=== PATIENT | male | born 1960 | race Caucasian/White ===

== ENCOUNTER 2024-10-10 11:05 | Outpatient (CLI) | payer MEDICARE, SELFPAY ==
--- NOTE | ~2024-10-10 | XR_ITS ---
Lumbosacral Spine: AP and lateral views Clinical History: Pain Findings: The normal lordotic curve is maintained. No fracture seen. 5 mm anterolisthesis of L4 over L5 present. There is severe facet arthropathy throughout the lumbar spine, especially from L3 through S1. The sacroiliac joints are normally outlined. Impression: Extensive severe facet arthropathy, as above. 5 mm anterolisthesis of L4 over L5. Reviewed, dictated and finalized at location M. Impression: Extensive severe facet arthropathy, as above. 5 mm anterolisthesis of L4 over L5.
--- NOTE | ~2024-10-10 | XR_ITS ---
XR hip BI 2V w AP pelvis 10/10/2024 11:40 Indication: Hip pain Procedure: AP pelvis and 2 views each hip Comparison: No prior studies for comparison. Findings: There is a left total hip arthroplasty. Pelvic rings intact. There is severe osteoarthritis of the right hip with remodeling of the acetabulum. There is lower lumbar spondylosis. Impression: 1: Severe osteoarthritis of the right hip. Reviewed, dictated and finalized at location B. Impression: 1: Severe osteoarthritis of the right hip.
--- OUTSIDE RECORDS SUMMARY | 2024-10-10 11:15 | XMS_ITS | Clinical Summary ---
Author Organization [facility] Address [address] [place] [address] Phone Care Team Providers Care Him Tech Name Role Phone Randy Singh Primary Care Provider [phone] Medications escitalopram (LEXAPRO) 20 MG Tablet Take 20 mg by mouth daily. 12/16/2020 Active Naproxen Sodium 220 MG Capsule Take by mouth 2 times daily as needed. Active Vit-Fe Fumarate-FA ( VITAMIN PO) Take by mouth. Active Ascorbic Acid (VITAMIN C PO) Take by mouth daily. Active zinc sulfate (Zinc-220) 220 (50 Zn) MG Capsule Take 220 mg by mouth daily. Active Active Problems Problem Noted Date Diagnosed Date Severe alcohol use disorder, in early remission 12/08/2016 Alcoholic dependence syndrome 12/03/2016 Cocaine dependence, episodic 12/03/2016 Family History Medical History Relation Name Comments Heart Disease Father Cancer Paternal Aunt stomach Cancer Sister Ovarian Relation Name Status Comments Father Paternal Aunt Sister Social History Tobacco Use Types Packs/Day Years Used Date Smoking Tobacco: Never Smokeless Tobacco: Never Alcohol Use Standard Drinks/Week Comments Not Currently 0 (1 standard drink = 0.6 oz pure alcohol) jack pattern excessive drinking 1 or 2 X's month 1 to 4 days a time Sexually Active Control Partners Comments Not Currently Female Sex and Gender Information Value Date Recorded Sex Assigned at Not on file Legal Sex Male 12:35 AM CDT Gender Identity Not on file Sexual Orientation Not on file Last Filed Vital Signs Vital Sign Reading Time Taken Comments Blood Pressure 125/79 04/28/2021 10:35 AM COTTAGE SUPERVISOR Pulse 61 04/28/2021 10:35 AM COTTAGE SUPERVISOR Temperature 36 C (96.8 F) 04/28/2021 10:35 AM COTTAGE SUPERVISOR Respiratory Rate 12 04/28/2021 10:35 AM COTTAGE SUPERVISOR Oxygen Saturation 100% 04/28/2021 10:35 AM COTTAGE SUPERVISOR Inhaled Oxygen Concentration - - Weight 90.3 kg (199 lb) 04/03/2021 9:00 AM COTTAGE SUPERVISOR Height 170.2 cm (5' 7 ) 04/03/2021 9:00 AM COTTAGE SUPERVISOR Body Mass Index 31.17 04/03/2021 9:00 AM COTTAGE SUPERVISOR Plan of Treatment Health Maintenance Due Date Last Done Comments Hepatitis C Virus (HCV) Screening 1960 TdaP Immunization 1958 Pneumococcal Immunization (5 0+ years) (1 of 2 - PCV) 1977 Cologuard 2008 Immunochemical Fecal Occult Blood 2008 Zoster Immunization (1 of 2) 2008 Influenza Immunization (#1) 2024 SARS-COV-2 Immunization ( season) 2024 Colonoscopy 04/28/2024 04/28/2021 Colorectal Cancer Screening 04/28/2024 Respiratory Syncytial Virus (RSV) Immunization (Adult) (1 - 1-dose 75+ series) 2033 04/28/2021 Hepatitis B Immunization Aged Out No longer eligible based on patient's age to complete this topic Meningococcal Immunization (ACWY) Aged Out No longer eligible based on patient's age to complete this topic Rotavirus Immunization Aged Out No lo nger eligible based on patient's age to complete this topic Insurance [facility] Care Teams Him Tech Relationship Specialty Start Date End Date Randy Singh PAC [address] [place] [address] PCP - General Physician Carburetor Specialist 11/05/16
[2024-10-10 19:29] LABS: Alanine Aminotransferase 27 U/L (6-50); Albumin Level 4.4 g/dL (3.5-5.1); Alkaline Phosphatase 95 U/L (38-126); Anion Gap 7 mmol/L (4-12); Aspartate Amino Transferase 62 U/L (17-59); Bilirubin,Total 0.4 mg/dL (0.2-1.3); Blood Urea Nitrogen 19 mg/dL (9-20); Calcium 9.1 mg/dL (8.4-10.2); Carbon Dioxide 28 mmol/L (22-30); Chloride 105 mmol/L (98-107); Cholesterol 260 mg/dL (0-200); Estimated Glomerular Filt Rate 52; Glucose 88 mg/dL (65-110); HDL Direct 33 mg/dL; Potassium 4.7 mmol/L (3.4-5.0); Sodium 140 mmol/L (137-145); Triglycerides 211 mg/dL (<150)
[2024-10-10 19:43] LABS: LDL Cholesterol Direct 154 mg/dL
[2024-10-10 19:58] LABS: Prostate Specific Antigen 1.8 ng/mL (< OR = 4.0)
== END 2024-10-10 11:06 | disposition home or self-care (01) ==
PROVIDERS: PCP Nurse Practitioner Adult Health; Visit Provider Nurse Practitioner Adult Health
DX: M16.11 Unilateral primary osteoarthritis, right hip (principal); E66.9 Obesity, unspecified; Z12.5 Encounter for screening for malignant neoplasm of prostate; F10.11 Alcohol abuse, in remission; M54.9 Dorsalgia, unspecified; G89.29 Other chronic pain; Z51.81 Encounter for therapeutic drug level monitoring
CPT/HCPCS: 36415; 72100; 73521; 80053; 80061; 82607; 84153; G0103

== ENCOUNTER 2024-10-31 08:41 | Outpatient (CLI) | payer MEDICARE, SELFPAY ==
--- NOTE | ~2024-10-31 | MR_ITS ---
MRI of the lumbar spine Clinical History: Spondylosis Technique: Axial T2-weighted images, and sagittal T1-weighted, T2-weighted, and and T2 fat-sat images were acquired. Findings: No fracture or subluxation seen in the lumbar spine. Vertebral bodies maintain normal heigh t and alignment. No bone marrow signal abnormality seen. At L1-L2 and L2-L3, intervertebral discs maintain normal signal and position. No disc bulge or hernia tion adrenals. There is moderate facet arthropathy at these levels. No spinal canal stenosis or neura l foraminal narrowing at these levels. At L3-L4, there is disc bulge with severe facet arthropathy, resulting in severe spinal canal stenosi s/thecal sac compression. There is moderate right neural foraminal narrowing, and mild left neural fo raminal narrowing. At L4-L5, there is diffuse disc bulge and severe facet arthropathy. There is severe spinal canal sten osis/thecal sac compression. Neural foramina are preserved. At L5-S1, there is mild degenerative tearing. There is mild diffuse disc bulge with advanced facet ar thropathy. No central canal stenosis. There is severe bilateral neural foraminal compromise. Paravertebral soft tissues are unremarkable. Impression: Severe degenerative spondylosis at L3-L4, L4-L5, and L5-S1. Please see details above. Reviewed, dictated and finalized at [facility]. Impression: Severe degenerative spondylosis at L3-L4, L4-L5, and L5-S1. Please see details above.
--- OUTSIDE RECORDS SUMMARY | 2024-10-31 08:59 | XMS_ITS | Clinical Summary ---
Author Organization [facility] Address [address] [place] [address] Care Team Providers Care Bobbin Doffer Name Role Phone Randy Singh Primary Care Provider [phone] Allergies No known active allergies Medications folic acid (FOLVITE) 1 mg tablet Take 1 tablet (1 mg total) by mouth daily 30 tablet 10/11/2019 Active traMADoL (ULTRAM) 50 mg tablet Take 1 tablet (50 mg total) by mouth every 4 (four) hours as needed for pain 20 tablet 10/12/2019 Active Active Problems Problem Noted Date Diagnosed Date Renal failure 10/09/2019 Assessment & Plan (10/09/2019 6:34 AM CDT): No prior creatinine. Unknown if it is acute, chronic or acute on chronic. Patient has trace proteins in his urine. Patient is receiving IV fluids, will continue to monitor. Hold all nephrotoxins. Cellulitis of right foot 10/09/2019 Assessment & Plan (10/09/2019 6:44 AM CDT): Suspect streptococcal infection. Appears to be improving with cefepime. Continue to monitor. Patient states he lives alone and there is no one to care for his dog. He is hoping he can be discharged today so he can go home and feed his dog. Patient encouraged to stay and advised to see if he has any family or friends that can help take care of his dog while he is being treated in the hospital. Patient advised that it is unlikely that he would be discharged today. Patient was also advised of the risk of leaving against medical advice including risk of bone infection, amputation, sepsis and . Patient would like to stay for care but is concerned about his dog. Alcohol abuse 10/09/2019 Assessment & Plan (10/09/2019 6:31 AM CDT): Patient drinks half pt of vodka daily and his last drink was the evening prior to presentation. Will start patient on folic acid, thiamine and multivitamin. If patient willing to stay, will start on low-dose Librium. Will monitor for signs of withdrawal. 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 Will check ANCA, cryoglobulins, C4, hepatitis-B and C serology, ESR and PTT. CRP slightly elevated. Will check a urine drug screen given history of cocaine use. Chronic alcohol use Encounters Date Type Department Care Team Description 10/19/2024 9:04 AM CDT - 10/19/2024 11:59 PM CDT Hospital Encounter [facility] [address] [place] [address] Encounter for disability determination Discharge Disposition: Discharge to home or self care from Last 3 Months Surgical History Surgery Date Site/Laterality Comments OTHER SURGICAL HISTORY Left hip osteoarthritis: left hip replacement. OTHER SURGICAL HISTORY Erectile dysfunction: Drug therapy OTHER SURGICAL HISTORY Pneumonia: Drug therapy JOINT REPLACEMENT Medical History Medical History Date Comments Hx Other Medical 2001 Left hip osteoa rthritis Hx Other Medical 2005 Erectile dysfun ction Pneumonia 2007 Pneumonia Arthritis Family History Medical History Relation Name Comments Other Father CAD, valve repl acement; Stomach cancer Father's Sister 2 cancer, gastric; Other Mother Healthy; Relation Name Status Comments Father Alive Father's Sister 1 Alive Father's Sister 2 Mother Alive Social History Tobacco Use Types Packs/Day Years Used Date Smoking Tobacco: Never Alcohol Use Standard Drinks/Week Comments Yes 0 (1 standard drink = 0.6 oz pur e alcohol) pint of vodka every night PHQ-2 Answer Date Recorded PHQ-2 Total Score (If total score is 3 or more points, staff should administer the PHQ-9) 1 10/08/2019 Sex and Gender Information Value Date Recorded Sex Assigned at Not on file 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 Gender Identity Not on file Sexual Orientation Not on file Obstetrics History Last Filed Vital Signs Vital Sign Reading Time Taken Comments Blood Pressure 162/82 10/12/2019 11:24 PM CDT Pulse 101 10/12/2019 8:40 PM CDT Temperature 37.4 C (99.4 F) 10/12/2019 8:40 PM CDT Respiratory Rate 20 10/12/2019 11:24 PM CDT Oxygen Saturation 99% 10/12/2019 11:24 PM CDT Inhaled Oxygen Concentration - - Weight 86.2 kg (190 lb) 10/12/2019 8:40 PM CDT Height 170.2 cm (5' 7) 10/12/2019 8:40 PM CDT Body Mass Index 29.76 10/12/2019 8:40 PM CDT Plan of Treatment Health Maintenance Due Date Last Done Comments Colon Cancer Screening-Colonoscopy 1958 Prostate Cancer Screening-PSA 1958 DTaP/Tdap/Td Vaccine (1 - Tdap) 1969 Pneumococcal vaccine 65+ (1 of 1 - PCV) 2008 Zoster Vaccine (1 of 2) 2008 Depression Screening 10/07/2020 10/08/2019 Fall Risk Assessment 10/09/2020 10/10/2019 Abdominal Aortic Aneurysm (AAA) Screen 09/30/2023 Well Visit 65+ 09/30/2023 Influenza Vaccine (Season Ended) 2025 Hepatitis B Screening Completed 10/09/2019 Hepatitis C Screening Completed 10/09/2019 Procedures Procedure Name Priority Date/Time Associated Diagnosis Comments XR HIP RIGHT W PELVIS 2 OR 3 VIEWS Schedule Routine, Read Routine (OP Routine) 10/19/2024 9:15 AM CDT Encounter for disability determination HEPATITIS C ANTIBODY Routine 10/09/2019 8:29 AM CDT HEPATITIS B CORE ANTIBODY, TOTAL Routine 10/09/2019 8:29 AM CDT from Last 3 Months or Most Recently Relevant to Health Maintenance Results * XR Hip Right 2 or 3 Views W Pelvis (10/19/2024 9:15 AM CDT) Anatomical Region Laterality Modality Lower Extremities, Hip, Pelvis Right C omputed Radiography 10/26/2024 3:41 PM CDT Narrative 10/26/2024 3:42 PM CDT EXAM DESCRIPTION: XR HIP RIGHT 2 OR 3 VIEWS W PELVIS REASON FOR STUDY: Pt states he has been having constant right hip pain for 15 years Pain increases when bearing weight Osteoarthritis Hx of left hip replacement FINDINGS: Three views submitted without comparison. No acute fracture. Severe right hip osteoarthritis. Left total hip arthroplasty is in place. 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 IMPRESSION: Severe right hip osteoarthritis. THIS IS AN ELECTRONICALLY VERIFIED FINAL REPORT 10/26/2024 3:42 PM - Electronically signed by Jose L Cueva M.D. MF: ZOE Report ID: [id number] Reading Location: [id number] Procedure Note Jose L Cueva MD - 10/26/2024 EXAM DESCRIPTION: XR HIP RIGHT 2 OR 3 VIEWS W PELVIS REASON FOR STUDY: Pt states he has been having constant right hip pain for15 years Pain increases when bearing weight Osteoarthritis Hx of lefthip replacement FINDINGS: Three views submitted without comparison. No acute fracture. Severe right hip osteoarthritis. Left total hip arthroplasty is in place. 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 IMPRESSION: Severe right hip osteoarthritis. THIS IS AN ELECTRONICALLY VERIFIED FINAL REPORT 10/26/2024 3:42 PM - Electronically signed by Jose L Cueva M.D. MF: ZOE Report ID: [id number] Reading Location: [id number] Tony Roman MD IMG XR PROCEDURES Final Result * Hepatitis C antibody (10/09/2019 8:29 AM CDT) Hep C Ab Nonreactive Nonreactive JULIA GUTHRIE ([place]) Comment: Interpretive Data Nonreactive: Antibodies to HCV not detected. Does NOT exclude the possibility of recent exposure to HCV. Equivocal: Equivocal for HCV antibodies. Supplemental molecular testing will be automatically performed to determine infection status in accordance with current CDC screening recommendations. Reactive: Positive for HCV antibodies. This may represent current or past HCV infection. Supplemental molecular testing will be automatically performed to determine current infection status in accordance with current CDC screening recommendations. Interpretive data was last revised on 2019. Testing performed by: [facility], [address] [place] [address]., [id number] Blood specimen (specimen) 10/09/2019 8:29 AM CDT 10/09/2019 1:47 PM CDT Xiomara Arizmendi MD LAB MICROBIOLOGY - GENERAL ORDER NELSON Final Result JULIA [facility] ([place]) 1 [facility] [employer] [place] [address] * Hepatitis B core antibody, total (10/09/2019 8:29 AM CDT) Hep B core IgG/IgM Nonreactive Nonreactive JULIA GUTHRIE ([place]) Comment:Testing performed by : [facility], [address] [place] [address]., [address] Blood specimen (specimen) 10/09/2019 8:29 AM CDT 10/09/2019 2:47 PM CDT Xiomara Arizmendi MD LAB MICROBIOLOGY - GENERAL ORDER NELSON Edited Result - Final JULIA GUTHRIE ([place]) 1 [facility] [employer] [place] [address] from Last 3 Months or Most Recently Relevant to Health Maintenance Insurance [facility] BUREAU OF DISABILITY Advance Directives For more information, please contact: [phone] * Full Code (Latest Code Status on File) Date Activated Date Inactivated Comments 10/08/2019 11:16 PM 10/10/2019 7:23 PM Healthcare Agents on File Name Relationship Healthcare Agent Relationsil p Communication Karis Short Sister First Alternate Health Care Agent Care Teams Bobbin Doffer Relationship Specialty Start Date End Date Randy Singh PA [address] [place] [address] PCP - General 10/08/19
--- OUTSIDE RECORDS SUMMARY | 2024-10-31 08:59 | XMS_ITS | Referral Summary ---
Author Organization [facility] Address [address] [place] [address] Care Team Providers Care Quality Control Technician Name Role Phone Randy Singh Primary Care Provider [phone] Encounters Date Type Department Care Team Description 10/19/2024 9:04 AM CDT - 10/19/2024 11:59 PM CDT Hospital Encounter [facility] [address] [place] [address] Encounter for disability determination Discharge Disposition: Discharge to home or self care from Last 3 Months Allergies No known active allergies Medications folic [...] history of cocaine use. 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 MF: ZOE Report ID: [id number] Reading Location: [id number] Procedure Note Jose L Cueva MD - [...] L Cueva M.D. MF: ZOE Report ID: [id number] Reading Location: [place] [address] [place] Tony Roman MD IMG XR PROCEDURES Final [...] last revised on 2019. Testing performed by: [facility], [address] [place] [address]., [address] Blood specimen (specimen) 10/09/2019 8:29 AM CDT 10/09/2019 1:47 PM CDT Xiomara Arizmendi MD LAB MICROBIOLOGY - GENERAL ORDER NELSON Final Result JULIA GUTHRIE ([place]) 1 [facility] Department [place] [address] * Hepatitis B core antibody, total (10/09/2019 8:29 AM CDT) Hep B core IgG/IgM Nonreactive Nonreactive JULIA GUTHRIE ([place]) Comment:Testing performed by : [facility], [address] [place] [address], [place]., [address] Blood specimen (specimen) 10/09/2019 8:29 AM CDT 10/09/2019 2:47 PM CDT us Xiomara Arizmendi MD LAB MICROBIOLOGY - GENERAL ORDER NELSON Edited Result - Final [facility] ([place]) 1 [facility] Department [place] [address] from Last 3 Months or Most Recently Relevant to Health Maintenance Insurance [facility] BURE[facility] OF DISABILITY Advance Directives For more information, please contact: [phone] * Full Code (Latest Code Status on File) Date Activated Date Inactivated Comments 10/08/2019 11:16 PM 10/10/2019 7:23 PM Healthcare Agents on File Name Relationship Healthcare Agent [facility] Communication Karis Short Sister First Alternate Health Care Agent Care Teams Quality Control Technician Relationship Specialty Start Date End Date Randy Singh PA [address] [place] [address] PCP - General 10/08/19
--- OUTSIDE RECORDS SUMMARY | 2024-10-31 08:59 | XMS_ITS | Data Portability ---
Author Organization [facility] Address [address] [place] [address] Care Team Providers Care Riding Silks Custodian Name Role Phone KIA SINGH Primary Care Provider Assessment No assessment recorded. Plan of Treatment Reminders Order Date Submit Date Provider Last Modified By Organization Details Last Modified Time Details Appointments None record ed. Lab urinal ysis, dipsti ck 2023 024 YOGESH In-Office Order, Internal Use Only DO Not Attach Compendium DO Not Attach Compendium, Do Not Delete/merge, [id number] 4 12:07:14 CBC 2023 024 [email or web address] [facility], [address] [facility] [address], [address], 4 10:05:56 CMP, serum or plasma 2023 024 [email or web address] [facility], [address] [place] [address] 2, [place], [address], 4 10:05:56 lipid panel, serum 2023 024 [email or web address] [facility], [address] [facility], [facility] 2, [place], [address], 4 10:05:56 HbA1c (hemog lobin A1c), blood 2023 024 [email or web address] [facility], [address] [facility], [facility] 2, [place], [address], 4 10:05:56 influe nza virus A + B + SARS-C oV-2 (COVID 19) Ag panel, rapid IA, upper respir atory specim en 2023 024 YOGESH In-Office Order, Internal Use Only DO Not Attach Compendium DO Not Attach Compendium, Do Not Delete/merge, [id number] 4 12:09:28 CBC 2022 023 YOGESH [facility], [address], [place], [address], 3 06:16:07 CMP, serum or plasma 2022 023 YOGESH [facility], [address], [address], [place], [address], 3 06:16:06 lipid panel, serum 2022 023 YOGESH [facility], [address], [place], [address], 3 06:16:06 HbA1c (hemog lobin A1c), blood 2022 023 YOGESH In-Office Order, Internal Use Only DO Not Attach Compendium DO Not Attach Compendium, Do Not Delete/merge, [id number] 3 12:55:06 HbA1c (hemog lobin A1c), blood 2020 021 YOGESH In-Office Order, Internal Use Only DO Not Attach Compendium DO Not Attach Compendium, Do Not Delete/merge, [id number] 1 13:16:32 CBC 2020 021 YOGESH [facility], [address], [place], [address], 1 13:10:08 CMP, serum or plasma 2020 021 YOGESH [facility], [address], [address], [place], [address], 1 13:10:07 lipid panel, serum 2020 021 [facility], [address] [place] [address] 2, [place], [address], 1 13:10:09 vitami n B12 + folate , serum or blood 2020 021 [facility], [address] [place] [address] 2, [place], [address], 1 13:10:12 PSA, serum or plasma 2020 021 [facility], [address] [place] [address] 2, [place], [address], 1 13:10:09 noninv asive colore ctal cancer DNA + occult blood screen ing, stool 2020 021 [facility] (Cologuard Orders Only), [address], [address], [place], [address], 19:15:21 Referral dermat simeon reed referr al 2020 021 [facility], [address], [address], [place], [address], 14:03:08 Procedures None record ed. Surgeries None record ed. Imaging None record ed. Medication Orders escita lopram 20 mg tablet 2022 023 [id number], [address], [place], [place], [id number], 4 15:03:18 escita lopram 20 mg tablet 2020 021 [id number], [address], [place], [place], [id number], 4 15:03:25 Bactri m DS 800 mg-160 mg tablet 2020 021 [facility][id number], [address], [place], [place], [id number], 3 11:44:01 neomyc in-sabina ymyxin -hydro gregory 3.5 mg-10, 000 unit/m L-1 % ear drops, susp 2020 021 [facility], [address], [place], [place], [id number], 11:43:24 Patient TargetsNo targets recorded. Patient Instructions Encounter Date Encounter Id Patient Instructions Last Modified By Organization Details Last Modified Time 12/16/2020 [id number] skin lesions: care instructions jnanney Not available 12/16/2020 12:35:02 12/30/2020 [id number] acute alcohol intoxication: care instructions jnanney Not available 12/30/2020 11:10:02 body mass index: care instructions jnanney Not available 12/30/2020 11:10:02 learning about healthy weight jnanney Not available 12/30/2020 11:10:02 keep doing what you're doing jnanney Not available 12/30/2020 11:07:50 07/28/2022 [id number] A healthy lifestyle: care instructions jnanney Not available 07/28/2022 12:44:03 07/23/2023 [id number] A healthy lifestyle: care instructions jnanney Not available 07/23/2023 12:06:55 blood in the urine: care instructions jnanney Not available 07/23/2023 12:06:56 learning about high blood pressure jnanney Not available 07/23/2023 12:06:56 upper respirator y infection (cold): care instructions jnanney Not available 07/23/2023 12:06:55 03/08/2024 [id number] A healthy lifestyle: care instructions jnanney Not available 03/08/2024 15:27:02 Reason for Referral Geriatric Nursing Assistant Referral for S kin lesion Referring Physician: Kia Singh, Family Medicine, Encounter Date: 12/16/2020 Results Created Date Observation Date Name Description Value Unit Range Abnormal Flag Note LastModifiedBy Organization Detail LastModifiedTime 12/17/19 21 12/17/2020 COMP. METAB OLIC PANEL (14) glucose 110 mg/dL 65-99 above high normal Not Available [facility] ([facility]) [address] [place], [address], 12/17/2020 13:10:07 12/17/19 21 12/17/2020 COMP. METAB OLIC PANEL (14) BUN 18 mg/dL 8-27 Not Available [facility] ([facility]) [address] [place], [address], 12/17/2020 13:10:07 12/17/19 21 12/17/2020 COMP. METAB OLIC PANEL (14) creatinine 1.39 mg/dL 0.76-1 .27 above high normal Not Available [facility] ([facility]) [address] [place], [address], 12/17/2020 13:10:07 12/17/19 21 12/17/2020 COMP. METAB OLIC PANEL (14) eGFR if nonafricn AM 54 mL/mi n/1.7 3 >59 below low normal Not Available [facility] ([facility]) [address] [place], [address], 12/17/2020 13:10:07 12/17/19 21 12/17/2020 COMP. METAB OLIC PANEL (14) eGFR if africn AM 62 mL/mi n/1.7 3 >59 Lab stephen curre ntly repor ts eGFR in compl iance with the curre nt recom menda tions of the Natio nal Kidne y Found ation . [facility] will updat e repor ting as new guide lines are publi shed from the NKF-A SN Task force . Not Available [facility] ([facility]) [address] [facility], [place], [address], 12/17/2020 13:10:07 12/17/19 21 12/17/2020 COMP. METAB OLIC PANEL (14) BUN/creatini ne ratio 13 10-24 Not Available [facility] ([facility]) [address] [facility], [place], [address], 12/17/2020 13:10:07 12/17/19 21 12/17/2020 COMP. METAB OLIC PANEL (14) sodium 143 mmol/ L 134-14 4 Not Available [facility] ([facility]) [address] [place], [address], 12/17/2020 13:10:07 12/17/19 21 12/17/2020 COMP. METAB OLIC PANEL (14) potassium 4.8 mmol/ L 3.5-5. 2 Not Available [facility] ([facility]) [address] [facility], [place], [address], 12/17/2020 13:10:07 12/17/19 21 12/17/2020 COMP. METAB OLIC PANEL (14) chloride 104 mmol/ L 96-106 Not Available [facility] ([facility]) [address] [facility], [place], [address], 12/17/2020 13:10:07 12/17/19 21 12/17/2020 COMP. METAB OLIC PANEL (14) carbon dioxide, total 23 mmol/ L 20-29 Not Available [facility] ([facility]) [address] [facility], [place], [address], 12/17/2020 13:10:07 12/17/19 21 12/17/2020 COMP. METAB OLIC PANEL (14) calcium 9.5 mg/dL 8.6-10 .2 Not Available [facility] ([facility]) [address] [facility], [place], [address], 12/17/2020 13:10:07 12/17/19 21 12/17/2020 COMP. METAB OLIC PANEL (14) protein, total 7.6 g/dL 6.0-8. 5 Not Available [facility] ([facility]) [address] [facility], [place], [address], 12/17/2020 13:10:07 12/17/19 21 12/17/2020 COMP. METAB OLIC PANEL (14) albumin 4.7 g/dL 3.8-4. 8 Not Available [facility] ([facility]) [address] [facility], [place], [address], 12/17/2020 13:10:07 12/17/19 21 12/17/2020 COMP. METAB OLIC PANEL (14) globulin, total 2.9 g/dL 1.5-4. 5 Not Available [facility] ([facility]) [address] [place], [address], 12/17/2020 13:10:07 12/17/19 21 12/17/2020 COMP. METAB OLIC PANEL (14) A/G ratio 1.6 1.2-2. 2 Not Available [facility] ([facility]) [address] [facility], [place], [address], 12/17/2020 13:10:07 12/17/19 21 12/17/2020 COMP. METAB OLIC PANEL (14) bilirubin, total 0.3 mg/dL 0.0-1. 2 Not Available [facility] ([facility]) [address] [facility], [place], [address], 12/17/2020 13:10:07 12/17/19 21 12/17/2020 COMP. METAB OLIC PANEL (14) alkaline phosphatase 96 IU/L 48-121 Not Available [facility]) [address] [facility], [place], [address], 12/17/2020 13:10:07 12/17/19 21 12/17/2020 COMP. METAB OLIC PANEL (14) AST (SGOT) 36 IU/L 0-40 Not Available [facility] ([facility]) [address] [place], [address], 12/17/2020 13:10:07 12/17/19 21 12/17/2020 COMP. METAB OLIC PANEL (14) ALT (SGPT) 48 IU/L 0-44 above high normal Not Available [facility] ([facility]) [address] [facility], [place], [address], 12/17/2020 13:10:07 12/17/19 21 12/17/2020 CBC, NO DIFFE RENTI AL/PL ATELE T WBC 9.6 x10e3 /uL 3.4-10 .8 Not Available [facility] ([facility]) [address] [facility] [place], [address], 12/17/2020 13:10:08 12/17/19 21 12/17/2020 CBC, NO DIFFE RENTI AL/PL ATELE T RBC 4.96 x10e6 /uL 4.14-5 .80 Not Available [facility] ([facility]) [address] [place], [address], 12/17/2020 13:10:08 12/17/19 21 12/17/2020 CBC, NO DIFFE RENTI AL/PL ATELE T hemoglobin 16.2 g/dL 13.0-1 7.7 Not Available [facility] ([facility]) [address] [place], [address], 12/17/2020 13:10:08 12/17/1912/17/2020 CBC, NO DIFFE RENTI AL/PL ATELE T hematocrit 47.5 % 37.5-5 1.0 Not Available [facility] ([facility]) [address] [place], [address], 12/17/2020 13:10:08 12/17/19 21 12/17/2020 CBC, NO DIFFE RENTI AL/PL ATELE T MCV 96 fL 79-97 Not Available [facility] ([facility]) [address] [place], [address], 12/17/2020 13:10:08 12/17/19 21 12/17/2020 CBC, NO DIFFE RENTI AL/PL ATELE T MCH 32.7 pg 26.6-3 3.0 Not Available [facility] ([facility]) [address] [place], [address], 12/17/2020 13:10:08 12/17/19 21 12/17/2020 CBC, NO DIFFE RENTI AL/PL ATELE T MCHC 34.1 g/dL 31.5-3 5.7 Not Available [facility] ([facility]) [address] [place], [address], 12/17/2020 13:10:08 12/17/19 21 12/17/2020 CBC, NO DIFFE RENTI AL/PL ATELE T RDW 13.5 % 11.6-1 5.4 Not Available [facility] ([facility]) [address] [place], [address], 12/17/2020 13:10:08 12/17/19 21 12/17/2020 CBC, NO DIFFE RENTI AL/PL ATELE T NRBC AUTOMOTIVE TITLE CLERK Not Available [facility] ([facility]) [address] [place], [address], 12/17/2020 13:10:08 12/17/19 21 12/17/2020 LIPID PANEL cholesterol, total 221 mg/dL 100-19 9 above high normal Not Available [facility] ([facility]) [address] [place], [address], 12/17/2020 13:10:09 12/17/19 21 12/17/2020 LIPID PANEL triglyceride s 158 mg/dL 0-149 above high normal Not Available [facility] ([facility]) [address] [place], [address], 12/17/2020 13:10:09 12/17/19 21 12/17/2020 LIPID PANEL HDL cholesterol 45 mg/dL >39 Not Available [facility]) [address] [place], [address], 12/17/2020 13:10:09 12/17/19 21 12/17/2020 LIPID PANEL VLDL cholesterol kimber 29 mg/dL 5-40 Not Available [facility]) [address] [place], [address], 12/17/2020 13:10:09 12/17/19 21 12/17/2020 LIPID PANEL LDL chol calc ([facility]) 147 mg/dL 0-99 above high normal Not Available [facility] ([facility]) [address] [place], [address], 12/17/2020 13:10:09 12/17/19 21 12/17/2020 LIPID PANEL comment: AUTOMOTIVE TITLE CLERK Not Available [facility] ([facility]) [address] [place], [address], 12/17/2020 13:10:09 12/17/19 21 12/17/2020 PSA, SERUM (SERI AL MONIT OR) prostate specific Ag, serum 1.1 NG/mL 0.0-4. 0 Aleksander ECLIA metho dolog y. Accor ding to the Ameri can Urolo gical Assoc iatio n, Serum PSA shoul d decre ase and remai n at undet ectab le level s after radic al prost atect alva. The AUA defin es bioch emica l recur rence as an initi al PSA value 0.2 ng/mL or great er follo wed by a subse quent confi rmato ry PSA value 0.2 ng/mL or great er. Value s obtai mike with diffe rent assay metho ds or kits canno t be used [facility] . Resul ts canno t be inter prete d as absol chuloon[place]ick evide nce of the prese nce or absen ce of [address] . Not Available [facility] ([facility]) [address], [place], [address], 12/17/2020 13:10:09 12/17/19 21 12/17/2020 PSA, SERUM (SERI AL MONIT OR) pdf . Not Available [facility] ([facility]) [address], [place], [address], 12/17/2020 13:10:09 12/17/19 21 12/17/2020 CARDI OVASC ULAR REPOR T interpretati on Note Suppl ement al repor t is avail able. Not Available [facility] ([facility]) [address], [place], [address], 12/17/2020 13:10:10 12/17/19 21 12/17/2020 CARDI OVASC ULAR REPOR T pdf Not applic able Not Available [facility] ([facility]) [address], [place], [address], 12/17/2020 13:10:10 12/17/19 21 12/17/2020 LITHO LINK CKD PROGR AM interpretati on Note Suppl ement al repor t is avail able. Not Available [facility] ([facility]) [address], [place], [address], 12/17/2020 13:10:11 12/17/19 21 12/17/2020 LITHO LINK CKD PROGR AM pdf . Not Available [facility] ([facility]) [address], [place], [address], 12/17/2020 13:10:11 12/17/19 21 12/17/2020 VITAM IN B12 AND FOLAT E vitamin B12 663 pg/mL 232-12 45 Not Available [facility] ([facility]) [address] [place], [address], 12/17/2020 13:10:12 12/17/19 21 12/17/2020 VITAM IN B12 AND FOLAT E folate (folic acid), serum 8.9 NG/mL >3.0 A serum folat e john ntrat ion of less than 3.1 ng/mL is consi dered to repre sent clini kimber defic iency . Not Available [facility] ([facility]) [address] [place], [address], 12/17/2020 13:10:12 12/17/19 21 12/16/2020 HbA1c (hemo globi n A1c), blood HbA1c 5.4 Not Available In-Office Order Internal Use Only DO Not Attach Compendium DO Not Attach Compendium, Do Not Delete/merge, [id number] 12/16/2020 12:05:44 07/29/19 23 07/29/2022 LIPID PANEL cholesterol, total 246.5 mg/dL 140.0- 200.0 above high normal Not Available [facility] ([facility]) [address] [place], [address], 07/29/2022 06:16:06 07/29/19 23 07/29/2022 LIPID PANEL triglyceride s 225 mg/dL <=150 above high normal Not Available [facility] ([facility]) [address] [place], [address], 07/29/2022 06:16:06 07/29/19 23 07/29/2022 LIPID PANEL HDL cholesterol 36.6 mg/dL 40.0-1 00.0 below low normal Not Available [facility] ([facility]) [address] [place], [address], 07/29/2022 06:16:06 07/29/19 23 07/29/2022 LIPID PANEL VLDL cholesterol kimber 45.00 mg/dL 5.00-4 0.00 above high normal Not Available [facility] ([facility]) [address] [place], [address], 07/29/2022 06:16:06 07/29/19 23 07/29/2022 LIPID PANEL LDL chol calc ([facility]) 167.7 Not Available [facility] ([facility]) [address] [place], [address], 07/29/2022 06:16:06 07/29/19 23 07/29/2022 COMP. METAB OLIC PANEL (14) glucose 102 mg/dL 65-99 above high normal ANION GP 21.0 mmol/ L N OSMOL 291.0 mOsM/ L N REFER ENCE RANGE : 275.0 -301. 0 Not Available [facility] ([facility]) [address] [place], [address], 07/29/2022 06:16:06 07/29/19 23 07/29/2022 COMP. METAB OLIC PANEL (14) BUN 17 mg/dL 8-26 Not Available [facility] ([facility]) [address] [place], [address], 07/29/2022 06:16:06 07/29/19 23 07/29/2022 COMP. METAB OLIC PANEL (14) creatinine 1.48 mg/dL 0.50-1 .40 above high normal Not Available [facility] ([facility]) [address] [place], [address], 07/29/2022 06:16:06 07/29/19 23 07/29/2022 COMP. METAB OLIC PANEL (14) eGFR 53 mL/mi n/1.7 3 >=60 below low normal Not Available [facility] ([facility]) [address] [place], [address], 07/29/2022 06:16:06 07/29/19 23 07/29/2022 COMP. METAB OLIC PANEL (14) BUN/creatini ne ratio 11.3 Not Available [facility] ([facility]) [address] [place], [address], 07/29/2022 06:16:06 07/29/19 23 07/29/2022 COMP. METAB OLIC PANEL (14) sodium 145.1 mmol/ L 136.0- 144.0 above high normal Not Available [facility] ([facility]) [address] [place], [address], 07/29/2022 06:16:06 07/29/19 23 07/29/2022 COMP. METAB OLIC PANEL (14) potassium 4.8 mmol/ L 3.5-5. 3 Not Available [facility] ([facility]) [address] [place], [address], 07/29/2022 06:16:06 07/29/19 23 07/29/2022 COMP. METAB OLIC PANEL (14) chloride 104 mmol/ l 101-11 1 Not Available [facility] ([facility]) [address] [place], [address], 07/29/2022 06:16:06 07/29/19 23 07/29/2022 COMP. METAB OLIC PANEL (14) carbon dioxide, total 24.4 mmol/ L 21.0-3 2.0 Not Available [facility] ([facility]) [address] [place], [address], 07/29/2022 06:16:06 07/29/19 23 07/29/2022 COMP. METAB OLIC PANEL (14) calcium 10.6 mg/dL 8.2-10 .0 above high normal Not Available [facility] ([facility]) [address] [place], [address], 07/29/2022 06:16:06 07/29/19 23 07/29/2022 COMP. METAB OLIC PANEL (14) protein, total 7.5 g/dL 6.7-8. 2 Not Available [facility] ([facility]) [address] [place], [address], 07/29/2022 06:16:06 07/29/19 23 07/29/2022 COMP. METAB OLIC PANEL (14) albumin 4.5 g/dL 3.5-5. 5 Not Available [facility] ([facility]) [address] [place], [address], 07/29/2022 06:16:06 07/29/19 23 07/29/2022 COMP. METAB OLIC PANEL (14) globulin, total 3.0 g/dL 1.5-4. 5 Not Available [facility] ([facility]) [address] [place], [address], 07/29/2022 06:16:06 07/29/19 23 07/29/2022 COMP. METAB OLIC PANEL (14) A/G ratio 1.5 Not Available [facility] ([facility]) [address] [place], [address], 07/29/2022 06:16:06 07/29/19 23 07/29/2022 COMP. METAB OLIC PANEL (14) bilirubin, total 0.4 mg/dL 0.0-1. 2 Not Available [facility] ([facility]) [address] [place], [address], 07/29/2022 06:16:06 07/29/19 23 07/29/2022 COMP. METAB OLIC PANEL (14) alkaline phosphatase 100.8 IU/L 42.0-1 21.0 Not Available [facility] ([facility]) [address] [place], [address], 07/29/2022 06:16:06 07/29/19 23 07/29/2022 COMP. METAB OLIC PANEL (14) AST (SGOT) 25.9 U/L 10.0-4 2.0 Not Available [facility] ([facility]) [address] [place], [address], 07/29/2022 06:16:06 07/29/19 23 07/29/2022 COMP. METAB OLIC PANEL (14) ALT (SGPT) 39.7 U/L 10.0-6 0.0 Not Available [facility] ([facility]) [address] [facility], [place], [address], 07/29/2022 06:16:06 07/29/19 23 07/28/2022 CBC, PLATE LET, NO DIFFE RENTI AL WBC 9.4 K/uL 3.4-10 .8 Not Available [facility] ([facility]) [address] [facility], [place], [address], 07/29/2022 06:16:07 07/29/1907/28/2022 CBC, PLATE LET, NO DIFFE RENTI AL RBC 4.8 M/uL 4.5-6. 3 Not Available [facility] ([facility]) [address] [facility], [place], [address], 07/29/2022 06:16:07 07/29/19 23 07/28/2022 CBC, PLATE LET, NO DIFFE RENTI AL hemoglobin 15.0 g/dL 13.5-1 7.5 Not Available [facility] ([facility]) [address] [facility], [place], [address], 07/29/2022 06:16:07 07/29/1907/28/2022 CBC, PLATE LET, NO DIFFE RENTI AL hematocrit 43.2 % 40.0-5 2.0 Not Available [facility] ([facility]) [address] [facility], [place], [address], 07/29/2022 06:16:07 07/29/1907/28/2022 CBC, PLATE LET, NO DIFFE RENTI AL MCV 91 fL 80-95 Not Available [facility] ([facility]) [address] [place], [address], 07/29/2022 06:16:07 07/29/19 23 07/28/2022 CBC, PLATE LET, NO DIFFE RENTI AL MCH 31 pg 27-32 Not Available [facility] ([facility]) [address] [place], [address], 07/29/2022 06:16:07 07/29/19 23 07/28/2022 CBC, PLATE LET, NO DIFFE RENTI AL MCHC 35 g/dL 32-36 Not Available [facility] ([facility]) [address] [facility], [place], [address], 07/29/2022 06:16:07 07/29/1907/28/2022 CBC, PLATE LET, NO DIFFE RENTI AL RDW 12.1 % 11.5-1 4.5 Not Available [facility] ([facility]) [address] [place], [address], 07/29/2022 06:16:07 07/29/19 23 07/28/2022 CBC, PLATE LET, NO DIFFE RENTI AL platelets 281 K/uL 155-37 9 MPV 11.2 FL 8.9-1 2.7 N Not Available [facility] ([facility]) [address] [facility], [place], [address], 07/29/2022 06:16:07 07/29/19 23 07/28/2022 CBC, PLATE LET, NO DIFFE RENTI AL NRBC 0 % Not Available [facility] ([facility]) [address] [place], [address], 07/29/2022 06:16:07 07/29/1907/29/2022 CARDI OVASC ULAR REPOR T interpretati on Note Suppl alysia whitten repor t is avail able. Not Available [facility] ([facility]) [address] [place], [address], 07/29/2022 06:16:07 07/29/19 23 07/29/2022 CARDI OVASC ULAR REPOR T pdf . Not Available [facility] ([facility]) [address], [place], [address], 07/29/2022 06:16:07 07/29/19 23 07/28/2022 HbA1c (hemo globi n A1c), blood HbA1c 5.5 Not Available In-Office Order Internal Use Only DO Not Attach Compendium DO Not Attach Compendium, Do Not Delete/merge, [id number] 07/28/2022 12:43:19 07/23/19 24 07/23/2023 influ sachin virus A + B + SARS- CoV-2 (COVI D19) Ag panel , rapid IA, upper respi rator y speci men Flu A negati ve Not Available In-Office Order Internal Use Only DO Not Attach Compendium DO Not Attach Compendium, Do Not Delete/merge, 07/23/2023 12:01:26 07/23/19 24 07/23/2023 influ sachin virus A + B + SARS- CoV-2 (COVI D19) Ag panel , rapid IA, upper respi rator y speci men Flu B negati ve Not Available In-Office Order Internal Use Only DO Not Attach Compendium DO Not Attach Compendium, Do Not Delete/merge, 07/23/2023 12:01:26 07/23/19 24 07/23/2023 influ sachin virus A + B + SARS- CoV-2 (COVI D19) Ag panel , rapid IA, upper respi rator y speci men Rapid SARS CoV 2 Ag, QL IA, respiratory specimen negati ve Not Available In-Office Order Internal Use Only DO Not Attach Compendium DO Not Attach Compendium, Do Not Delete/merge, 07/23/2023 12:01:26 07/23/19 24 07/23/2023 urina lysis , dipst ick Leukocytes Negati ve Not Available In-Office Order Internal Use Only DO Not Attach Compendium DO Not Attach Compendium, Do Not Delete/merge, 07/23/2023 12:01:03 07/23/19 24 07/23/2023 urina lysis , dipst ick Nitrite negati ve Not Available In-Office Order Internal Use Only DO Not Attach Compendium DO Not Attach Compendium, Do Not Delete/merge, 07/23/2023 12:01:03 07/23/19 24 07/23/2023 urina lysis , dipst ick Urobilinogen .2 Not Available In-Of fice Order Internal Use Only DO Not Attach Compendium DO Not Attach Compendium, Do Not Delete/merge, 07/23/2023 12:01:03 07/23/19 24 07/23/2023 urina lysis , dipst ick Protein Trace Not Available In-Office Order Internal Use Only DO Not Attach Compendium DO Not Attach Compendium, Do Not Delete/merge, 07/23/2023 12:01:03 07/23/19 24 07/23/2023 urina lysis , dipst ick pH 7.0 Not Available In-Office Order Internal Use Only DO Not Attach Compendium DO Not Attach Compendium, Do Not Delete/merge, 07/23/2023 12:01:03 07/23/19 24 07/23/2023 urina lysis , dipst ick Blood Negati ve Not Available In-Office Order Internal Use Only DO Not Attach Compendium DO Not Attach Compendium, Do Not Delete/merge, 07/23/2023 12:01:03 07/23/19 24 07/23/2023 urina lysis , dipst ick Specific [place] 1.015 Not Available In-Off ice Order Internal Use Only DO Not Attach Compendium DO Not Attach Compendium, Do Not Delete/merge, 07/23/2023 12:01:03 07/23/19 24 07/23/2023 urina lysis , dipst ick Ketone Negati ve Not Available In-Office Order Internal Use Only DO Not Attach Compendium DO Not Attach Compendium, Do Not Delete/merge, 07/23/2023 12:01:03 07/23/19 24 07/23/2023 urina lysis , dipst ick Bilirubin Negati ve Not Available In-Office Order Internal Use Only DO Not Attach Compendium DO Not Attach Compendium, Do Not Delete/merge, 07/23/2023 12:01:03 07/23/19 24 07/23/2023 urina lysis , dipst ick Glucose Negati ve Not Available In-Office Order Internal Use Only DO Not Attach Compendium DO Not Attach Compendium, Do Not Delete/merge, [id number] 07/23/2023 12:01:03 07/23/19 24 07/23/2023 urina lysis , dipst ick Appearance Clear Not Available In-Offi ce Order Internal Use Only DO Not Attach Compendium DO Not Attach Compendium, Do Not Delete/merge, [id number] 07/23/2023 12:01:03 07/23/19 24 07/23/2023 urina lysis , dipst ick Color Dark Yellow Not Available In-Office Order Internal Use Only DO Not Attach Compendium DO Not Attach Compendium, Do Not Delete/merge, [id number] 07/23/2023 12:01:03 Result Notes None recorded. Problems Name Problem SNOMED Code Status Onset Date Resolution Date Notes Provider Name and Address Organization Details Recorded Time Shoulder joint pain 611764930 Active LAURI [place], [place] - [facility] 11:37:57 Current drinker 508441 [place] LAURI [place] [facility] 11:37:57 Renal failure syndrome 22987457 Active 020 Ruthie Allen [place], [place] [facility] 11:37:57 Cellulitis of foot 464931169 Active 020 LAURI [place] [facility] 11:37:57 Harmful pattern of use of alcohol 26620054 Active 020 LAURI [place] [facility] 11:37:57 Purpura 663276717 Active 020 LAURI [place] [facility] 11:37:57 Chronic depression 911008178 Active 021 Kia Singh PA-C Attn: Maxime g,[address] [place], [address], [place] - [facility] 13:06:12 Problem Notes None recorded. Procedures Surgical History Date Name Laterality Status Provider Name and Address Organization Details Recorded Time colonoscopy completed Ruthie Allen MA [facility] 12/16/2020 11:40:37 Other completed Tila Wallace MA [facility] 06/21/2014 15:05:30 Imaging Results None recorded. Procedure Notes None recorded. Medical Equipment None Reported. Allergies No known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
--- OUTSIDE RECORDS SUMMARY | 2024-10-31 08:59 | XMS_ITS | Clinical Summary ---
Author Organization [facility] Address [address] [place] [address] Phone Care Team Providers Care Human Resources Records Clerk Name Role Phone Randy Singh Primary Care Provider [phone] Medications escitalopram (LEXAPRO) 20 MG Tablet Take [...] Comments Blood Pressure 125/79 04/28/2021 10:35 AM [facility] Pulse 61 04/28/2021 10:35 AM [facility] Temperature 36 C (96.8 F) 04/28/2021 10:35 AM [facility] Respiratory Rate 12 04/28/2021 10:35 AM [facility] Oxygen Saturation 100% 04/28/2021 10:35 AM [facility] Inhaled Oxygen Concentration - - Weight 90.3 kg (199 lb) 04/03/2021 9:00 AM [facility] Height 170.2 cm (5' 7) 04/03/2021 9:00 AM [facility] CON[facility] Body Mass Index 31.17 04/03/2021 9:00 AM [facility] Plan of Treatment Health Maintenance Due Date Last Done Comments Hepatitis C Virus (HCV) Screening 1960 TdaP Immunization 1960 Cologuard 09/30/2003 Immunochemical Fecal Occult Blood 09/30/2003 Pneumococcal Immunization (5 0+ years) (1 of 1 - PCV) 2008 Zoster Immunization (1 of 2) 2008 SARS-COV-2 Immunization ( - 2023- season) 2024 Colonoscopy 04/28/2024 04/28/2021 Colorectal Cancer Screening 04/28/2024 Influenza Immunization (Seas on Ended) 2025 Respiratory Syncytial Virus (RSV) Immunization (Adult) (1 - 1-dose 75+ series) 2033 Hepatitis B Immunization Aged Out No longer eligible based on patient's age to complete this topic Human Papillomavirus (HPV) Immunization Aged Out No longer eligible b ased on patient's age to complete this topic Meningococcal Immunization (ACWY) Aged Out No longer eligible based on patient's age to complete this topic Rotavirus Immunization Aged Out No lo nger eligible based on patient's age to complete this topic Insurance [id number] Care Teams Human Resources Records Clerk Relationship Specialty Start Date End Date Randy Singh PAC [address] [place] [address] PCP - General Physician Early Childhood Education Coordinator 11/05/16
== END 2024-10-31 08:42 | disposition home or self-care (01) ==
PROVIDERS: PCP Nurse Practitioner Adult Health; Visit Provider Nurse Practitioner Adult Health
DX: M47.816 Spondylosis without myelopathy or radiculopathy, lumbar region (principal)
CPT/HCPCS: 72148

== ENCOUNTER 2024-11-14 10:40 | Outpatient (CLI) | payer MEDICARE, SELFPAY ==
[2024-11-14 19:02] LABS: Hematocrit 41.4 % (42.0-52.0); Hemoglobin 13.4 g/dL (14.0-18.0); Mean Corpuscular HGB Conc 32.4 g/dl (32-36); Mean Corpuscular Volume 89.6 fl (80-100); Mean Platelet Volume 10.7 fl (7.4-10.4); Platelet Count Result 282 k/mm3 (150-375); Red Blood Count 4.62 M/mm3 (4.6-6.20); Red Cell Distribution Width 12.9 % (11.5-14.5); White Blood Count 8.1 K/mm3 (4.5-10.0)
[2024-11-14 19:43] LABS: Albumin Level 4.7 g/dL (3.5-5.1); Anion Gap 9 mmol/L (4-12); Blood Urea Nitrogen 18 mg/dL (9-20); Calcium 9.6 mg/dL (8.4-10.2); Carbon Dioxide 28 mmol/L (22-30); Chloride 103 mmol/L (98-107); Estimated Glomerular Filt Rate 51; Glucose 92 mg/dL (65-110); Phosphorus 2.7 mg/dL (2.5-4.5); Potassium 4.6 mmol/L (3.4-5.0); Sodium 140 mmol/L (137-145)
[2024-11-14 20:04] LABS: Hepatitis C Virus Antibody Negative (Negative)
[2024-11-14 20:49] LABS: Phosphorus 2.7 mg/dL (2.5-4.5)
== END 2024-11-14 10:41 | disposition home or self-care (01) ==
PROVIDERS: PCP Nurse Practitioner Adult Health; Visit Provider Nurse Practitioner Adult Health
DX: N28.9 Disorder of kidney and ureter, unspecified (principal); Z11.59 Encounter for screening for other viral diseases; R53.83 Other fatigue
CPT/HCPCS: 36415; 80069; 84100; 85027; 86803

== ENCOUNTER 2025-02-06 08:39 | Day surgery (SDC) | payer MEDICARE, SELFPAY ==
[2025-01-25 13:37] VITALS: BMI 26.6
--- NOTE | 2025-01-25 14:04 | PC.NURSE ---
PT INFORMED HE CANNOT TAKE THE BUS TO [facility], MUST HAVE A BOX FABRICATOR. ALSO TOLD NOT TO SMOKE MARIJUANA MORNING OF INJECTION. PT VERBALIZED UNDERSTANDING
--- NOTE | ~2025-02-06 | XR_ITS ---
XR fluoroscopy no charge Indication: L3-4 interlaminar epidural steroid injection TECHNIQUE: Fluoroscopy used during L3-4 interlaminar epidural steroid injection performed by [Curly Mayen MD] on 02/06/2025. 36 seconds of fluoroscopy time with 3 fluoroscopic images captured. FINDINGS: Correlate with procedure note. IMPRESSION: Fluoroscopy used during L3-4 interlaminar epidural steroid injection. Reviewed, dictated and finalized at location O. IMPRESSION: Fluoroscopy used during L3-4 interlaminar epidural steroid injectio n.
[2025-02-06 09:40] VITALS: BP 129/71; PULSE 77; RESP 16; TEMP 37.2; O2SAT 100
--- OUTSIDE RECORDS SUMMARY | 2025-02-06 10:04 | XMS_ITS | Clinical Summary ---
Author Organization [facility] Address [address] [place] [address] Care Team Providers Care Visitor Services Assistant Name Role Phone Alessandra Ruelas NP Primary Care Provider [phone] Allergies No known active allergies Medications folic [...] history of cocaine use. Chronic alcohol use Surgical History Surgery Date Site/Laterality Comments OTHER SURGICAL HISTORY Left hip osteoarthritis: left hip replacement. 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 Testing performed by: [facility], [address] [place] [address] [place]., [address] Blood specimen (specimen) 10/09/2019 8:29 AM CDT 10/09/2019 1:47 PM CDT Xiomara Arizmendi MD LAB MICROBIOLOGY - GENERAL ORDER NELSON Final Result JULIA GUTHRIE ([place]) 1 [facility] [email or web address] [address] * Hepatitis B core antibody, total (10/09/2019 8:29 AM CDT) Hep B core IgG/IgM Nonreactive Nonreactive JULIA GUTHRIE ([place]EDERICK) Comment:Testing performed by : [facility], [address] [place] [address], [address] Blood specimen (specimen) 10/09/2019 8:29 AM CDT 10/09/2019 2:47 PM CDT Xiomara Arizmendi MD LAB MICROBIOLOGY - GENERAL ORDER NELSON Edited Result - Final JULIA GUTHRIE ([place]) 1 [facility] [email or web address] [address] from Last 3 Months or Most Recently Relevant to Health Maintenance Insurance [facility] MEDICARE ADVANTAGE [facility] MEDICARE [place] [facility] MEDICARE ADVANTAGE Advance Directives For more information, please contact: [phone] * Full Code (Latest Code Status on File) Date Activated Date Inactivated Comments 10/08/2019 11:16 PM 10/10/2019 7:23 PM Healthcare Agents on File Name Relationship Healthcare Agent [facility] Communication Karis Short Sister First Alternate Health Care Agent Care Teams Visitor Services Assistant Relationship Specialty Start Date End Date Alessandra Ruelas NP [address] [place] [address] PCP - General Nurse Practitioner 11/29/24
--- OUTSIDE RECORDS SUMMARY | 2025-02-06 10:04 | XMS_ITS | Clinical Summary ---
Author Organization [facility] Address [address] [place] [address] Phone Care Team Providers Care Agile Scrum Coach Name Role Phone Randy Singh Primary Care Provider [phone] Medications escitalopram (LEXAPRO) 20 MG Tablet Take [...] Comments Blood Pressure 125/79 04/28/2021 10:35 AM STAVE GRADER Pulse 61 04/28/2021 10:35 AM STAVE GRADER Temperature 36 C (96.8 F) 04/28/2021 10:35 AM STAVE GRADER Respiratory Rate 12 04/28/2021 10:35 AM STAVE GRADER Oxygen Saturation 100% 04/28/2021 10:35 AM STAVE GRADER Inhaled Oxygen Concentration - - Weight 90.3 kg (199 lb) 04/03/2021 9:00 AM STAVE GRADER Height 170.2 cm (5' 7) 04/03/2021 9:00 AM STAVE GRADER Body Mass Index 31.17 04/03/2021 9:00 AM STAVE GRADER Plan of Treatment Health Maintenance Due Date Last Done Comments Hepatitis C Virus (HCV) Screening 1960 TdaP Immunization 1960 Pneumococcal Immunization (5 0+ years) (1 of 2 - PCV) 1977 Cologuard 09/30/2003 Immunochemical Fecal Occult Blood 09/30/2003 Zoster Immunization (1 of 2) 2008 Colonoscopy 04/28/2024 04/28/2021 Colorectal Cancer Screening 04/28/2024 Influenza Immunization (#1) 2025 SARS-COV-2 Immunization ( season) 2025 Respiratory Syncytial Virus (RSV) Immunization (Adult) [...] Insurance [facility] Care Teams Agile Scrum Coach Relationship Specialty Start Date End Date Randy Singh PAC [address] [place] [address] PCP - General Physician Manager Tax 11/05/16
--- NOTE | 2025-02-06 10:14 | WPDHPUPDATE1 ---
History and Physical Update Update Date/Time: 02/06/25 10:14 History and Physical has been reviewed, including an updated exam of the patient. There are NO changes in the patient's condition. Risks, benefits, and alternatives have been discussed and questions answered. Patient agrees to proceed with procedure.
--- NOTE | 2025-02-06 10:15 | P.OP_ITS ---
Procedure Note - Detailed Date of Procedure 02/06/25 Pre-op Diagnosis Lumbar Stenosis w/Neurogenic Claudication, lumbar radiculopathy Post-op Diagnosis Same Procedure Performed Midline Lumbar Interlaminar Epidural Steroid Injection at L3-4 under Fluoroscopic Guidance [and with Contrast Control]. Surgeon Curly Mayen MD Anesthesia Local Description of Procedure INFORMED CONSENT: Risks, benefits and alternatives to the procedure were discussed in detail with the patient who expressed explicit understanding and consent to proceed. Patient was informed verbally and in written form regarding the risks associated with the procedure including the low risk of serious infection, bleeding/bruising, allergic reaction, nerve or organ injury, paralysis, procedural site pain or discomfort, worsening pain and/or mobility, failure to treat and/or disfigurement. The patient expressed explicit understa nding and consent to proceed. All materials required for the procedure were available prior to procedure start. Site and side were marked prior to procedure and confirmed in the presence of the patient. PROCEDURE IN DETAIL: The patient was brought to the procedural suite and placed in the prone position. Patient was made comfortable with use of pillows under the head/chest, hips and ankles. Skin overlying the injection site was prepared broadly with ChloraPrep applicator and draped in a sterile manner. Aseptic technique was employed throughout. The endplates of the vertebral body at the site of interest were aligned in the AP view. Slight caudad tilt and ipsilateral oblique angulation was utilized to optimize visualization of the targeted posterior intervertebral foramen at L3-4. Local anesthesia was established by infiltration with approximately 5 mL of 2% lidocaine via a 1-1/2 inch 27-gauge needle. A 20-gauge 4-inch Tuohy epidural needle was advanced intermittently until appropriate loss of resistance to air was identified via plastic loss of resistance syringe. Lateral view was used to confirm the appropriate positioning of the needle tip within the posterior epidural space. [In the AP and lateral views, a total of 2.0 mL of Omnipaque 300 contrast medium was injected after negative aspiration for CSF, blood or other bodily fluid, showing appropriate posterior epidural spread of contrast without evidence of intravascular or intrathecal placement.] After a repeat negative aspiration for blood or other bodily fluid, a 4 mL solution containing 10 mg of dexamethasone in sterile PF Normal Saline was injected after negative repeat aspiration. Appropriate spread of the injectate was confirmed with washout of previously injected contrast. No parasthesias were elicited. Needle was removed completely intact without difficulty. Images were saved and documented in the patient chart. Patient's skin was cleaned and sterile bandage applied. The patient tolerated the procedure well. The patient was transported to the recovery area in stable condition where they were observed for an appropriate amount of time prior to discharge, without evidence of complication. The patient was instructed to avoid excessive activity for the next 48 hours, including climbing and frequent use of stairs. Showers only for 48 hours. They were instructed not to drive or operate heavy machinery for 24 hours. They are to monitor for severe headaches, fevers, chills, night sweats, erythema/swelling at the site or any other signs of infection, bleeding/bruising, bowel or bladder changes as well as new pain, weakness or numbness in the upper or lower extremity. Should they notice these changes, they are instructed to call our office immediately or report directly to the nearest Emergency Department if no answer or if after posted office hours. COMPLICATIONS: None COMMENTS: None CONTRAST WASTED: 28 mL Omnipaque 300. Complications No immediate complications Condition Stable Disposition Same day [facility] Billing Surgery - Charge Forward: Surgery Billing
[2025-02-06 10:26] VITALS: BP 152/97; PULSE 80; RESP 12; O2SAT 99
[2025-02-06] MEDS: dexAMETHasone SOD PHOS INJ 10 MG/ML 1 ML VIAL IM (10:27)
[2025-02-06 10:33] VITALS: BP 128/69; PULSE 68; RESP 20; O2SAT 100
== END 2025-02-06 10:47 | disposition home or self-care (01) ==
PROVIDERS: PCP Nurse Practitioner Adult Health; Visit Provider Anesthesiology Pain Medicine
PROC: (CPT 62323; principal; 2025-02-06 09:50)
DX: M48.062 Spinal stenosis, lumbar region with neurogenic claudication (principal); M54.16 Radiculopathy, lumbar region
CPT/HCPCS: 62323; 99199; J1100

== ENCOUNTER 2025-02-28 02:31 | Day surgery (SDC) | payer MEDICARE, SELFPAY ==
[2025-02-20 12:01] VITALS: BMI 25.8
--- OUTSIDE RECORDS SUMMARY | 2025-02-28 02:34 | XMS_ITS | Clinical Summary ---
Author Organization [facility] Address [address] [place] [address] Phone Care Team Providers Care Composition Roll Maker And Cutter Name Role Phone Randy Singh Primary Care Provider [phone] Medications escitalopram (LEXAPRO) 20 MG Tablet Take [...] Comments Blood Pressure 125/79 04/28/2021 10:35 AM BANJO REPAIRER Pulse 61 04/28/2021 10:35 AM BANJO REPAIRER Temperature 36 C (96.8 F) 04/28/2021 10:35 AM BANJO REPAIRER Respiratory Rate 12 04/28/2021 10:35 AM BANJO REPAIRER Oxygen Saturation 100% 04/28/2021 10:35 AM BANJO REPAIRER Inhaled Oxygen Concentration - - Weight 90.3 kg (199 lb) 04/03/2021 9:00 AM BANJO REPAIRER Height 170.2 cm (5' 7) 04/03/2021 9:00 AM BANJO REPAIRER Body Mass Index 31.17 04/03/2021 9:00 AM BANJO REPAIRER Plan of Treatment Health Maintenance Due Date [...] Insurance [facility] Care Teams Composition Roll Maker And Cutter Relationship Specialty Start Date End Date Randy Singh PAC [address] [place] [address] PCP - General Physician Training And Development Assistant 11/05/16
--- OUTSIDE RECORDS SUMMARY | 2025-02-28 02:34 | XMS_ITS | Clinical Summary ---
Author Organization [facility] Address [address] [place] [address] Care Team Providers Care Special Agent [employer] Name Role Phone Alessandra Ruelas NP Primary Care Provider [phone] Allergies No known active allergies Medications folic [...] Encounters Date Type Department Care Team Description 02/15/2025 8:30 AM CDT Therapy [facility] [place] [address] Karen Earl, PT Chronic midline low back pain without sciatica (Primary Dx); Pain in joint involving right pelvic region and thigh; Atrophy of calf muscles on right; Unequal leg length (acquired) 02/15/2025 Plan of Care Documentation 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 Testing performed by: [facility], [address] [place] [address]., [address] Blood specimen (specimen) 10/09/2019 8:29 AM CDT 10/09/2019 1:47 PM CDT Xiomara Arizmendi MD LAB MICROBIOLOGY - GENERAL ORDER NELSON Final Result JULIA GUTHRIE ([place]) 1 [facility] [place] [address] * Hepatitis B core antibody, total (10/09/2019 8:29 AM CDT) Hep B core IgG/IgM Nonreactive Nonreactive JULIA GUTHRIE ([place]) Comment:Testing performed by : [facility], [address] [place] [address], [address] Blood specimen (specimen) 10/09/2019 8:29 AM CDT 10/09/2019 2:47 PM CDT Xiomara Arizmendi MD LAB MICROBIOLOGY - GENERAL ORDER NELSON Edited Result - Final JULIA GUTHRIE ([place]) 1 [facility] [place] [address] from Last 3 Months or Most Recently Relevant to Health Maintenance Insurance [facility] MEDICARE ADVANTAGE Advance Directives For more information, please contact: [phone] * Full Code (Latest Code Status on File) Date Activated Date Inactivated Comments 10/08/2019 11:16 PM 10/10/2019 7:23 PM Healthcare Agents on File Name Relationship Healthcare Agent Relationshi p Communication Karis Short Sister First Alternate Health Care Agent Care Teams Special Agent [employer] Relationship Specialty Start Date End Date Alessandra Ruelas NP [address] [place] [address] PCP - General Nurse Practitioner 11/29/24
[2025-02-28 09:16] VITALS: BP 134/72; PULSE 76; RESP 19; TEMP 36.7; O2SAT 100; BMI 23.8
[2025-02-28] MEDS: LACTATED RINGERS 1,000 ML 150 ML IV CONT (09:33)
--- NOTE | 2025-02-28 09:39 | WPDANESEPPF ---
Anes - Initial Pre Proc Eval Procedure: Operation Date: 02/28/25 10:30 Proposed Procedures p Screening Colonoscopy - Bladimir Wilson MD Date/Time: 02/28/25 09:39 Surgeon: Bladimir Wilson MD Pre Op Diagnosis: Encounter for screening for malignant neoplasm of Patient Data Age: 64 Gender: M Height: 1.7 m Weight: 68.9 kg Last Vital Signs Temp 36.7 C 02/28/25 09:16 Pulse 76 02/28/25 09:16 Resp 19 02/28/25 09:16 BP 134/72 02/28/25 09:16 Pulse Ox 100 02/28/25 09:16 O2 Del Method Room Air 02/28/25 09:16 Allergies Allergy/AdvReac Type Severity Reaction Status Date / Time HORSE SERUM TETANUS Allergy Intermediate Unknown Uncoded 02/28/25 09:15 Home Medications ?Medication ?Instructions ?Recorded ?Confirmed ?Type multivit-min 67-folic acid 1 2 tablet PO DAILY 10/10/24 02/28/25 History mg-alpha lipoic 100 mg-lutein 1 mg tablet (Neovite) tramadol 50 mg tablet 50 mg PO Q6H PRN pain #30 tabs 01/04/25 02/28/25 Rx ascorbate calcium (vitamin C) 500 500 mg PO DAILY 02/20/25 02/28/25 History mg tablet Patient hx anesthesia problems: none Family hx anesthesia problems: none Results Review: All pre-operative results and documents have been reviewed as part of the pre-operative evaluation. [facility] Past Medical History Medical History Anxiety Hypertension Hyperlipidemia Leg length discrepancy Atrophy of muscle of right lower leg Neurogenic claudication due to lumbar spinal stenosis Dorsalgia Lumbar stenosis Lumbar spondylosis Lumbar radiculopathy Osteoporosis Hip pain Back pain, chronic Arthritis Surgical History Surgical History History of total left hip arthroplasty Family History Family History Father Heart disease Thyroid disorder Social History Social History Smoking status: Former smoker Second hand tobacco smoke exposure: Yes Additional smoking assessment comments: Does not smoke Alcohol intake: former Drinks per week: 0 Alcohol use details: 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 EVERY DAY Do You Feel Safe in your Home?: Yes Lack of Transportation: No Lack of Food: Never True Current Housing: I Have Housing Concerned About Future Housing: No Difficulty Paying Gas/Electric Bills: No Difficulty Paying for Meds: No Currently Unemployed: No Education: Bachelor's Degree Difficulty w/ Childcare or Family Care: No Living arrangements: alone Occupation/Education: retired Gender identity (if verbalized by the patient): Male Spiritual care concerns: No Agree to blood products: Yes Anes - Eval Final PreProcedure Day of Procedure 02/28/25 09:39 Patient weight: normal Heart: regular rate and rhythm Lungs: clear to auscultation Airway: Mallampati scale class II Neurological: alert and oriented Last oral intake: >/= 8 hours ASA classification: III Emergent: no Anesthetic plan: proceed Anesthesia type and monitoring: general GIVS and standard monitoring Results Review: All pre-operative results and documents have been reviewed as part of the pre-operative evaluation. Informed Consent: The patient's anesthetic plan and its attendant risks and benefits were discussed with the patient/family/POA. Questions were solicited and answers provided to the satisfaction of the patient/family/POA.
--- NOTE | 2025-02-28 10:17 | PM.IMHP ---
H&P: HPI History of Present Illness Date/Time: 02/28/25 10:17 Chief Complaint: History of colon polyps Narrative: The patient has a history of colonic polyps, the last colonoscopy was 3 years ago at another institution. Review of Systems Review of Systems: All systems reviewed & are unremarkable except as noted in HPI and below PMFSH Past Medical History Medical History Anxiety Hypertension Hyperlipidemia Leg length discrepancy Atrophy of muscle of right lower leg Neurogenic claudication due to lumbar spinal stenosis Dorsalgia Lumbar stenosis Lumbar spondylosis Lumbar radiculopathy Osteoporosis Hip pain Back pain, chronic Arthritis Surgical History Surgical History History of total left hip arthroplasty Family History Family History Father Heart disease Thyroid disorder Social History Social History Smoking status: Former smoker Second hand tobacco smoke exposure: Yes Additional smoking assessment comments: Does not smoke Alcohol intake: former Drinks per week: 0 Alcohol use details: 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 EVERY DAY Do You Feel Safe in your Home?: Yes Lack of Transportation: No Lack of Food: Never True Current Housing: I Have Housing Concerned About Future Housing: No Difficulty Paying Gas/Electric Bills: No Difficulty Paying for Meds: No Currently Unemployed: No Education: Bachelor's Degree Difficulty w/ Childcare or Family Care: No Living arrangements: alone Occupation/Education: retired Gender identity (if verbalized by the patient): Male Spiritual care concerns: No Agree to blood products: Yes Meds Home Medications and Allergies Home Medications ?Medication ?Instructions ?Recorded ?Confirmed ?Type multivit-min 67-folic acid 1 2 tablet PO DAILY 10/10/24 02/28/25 History mg-alpha lipoic 100 mg-lutein 1 mg tablet (Neovite) tramadol 50 mg tablet 50 mg PO Q6H PRN pain #30 tabs 01/04/25 02/28/25 Rx ascorbate calcium (vitamin C) 500 500 mg PO DAILY 02/20/25 02/28/25 History mg tablet Allergies Allergy/AdvReac Type Severity Reaction Status Date / Time HORSE SERUM TETANUS Allergy Intermediate Unknown Uncoded 02/28/25 09:15 Vital Signs Vital Signs - 24 hr 02/28/25 09:16 Temperature 98.0 F Pulse Rate 76 Respiratory Rate 19 Blood Pressure 134/72 Pulse Oximetry 100 Oxygen Delivery Room Air Exam Const: General: cooperative and healthy appearing Resp: Effort & Inspection: normal respiratory effort and able to speak in complete sentences Auscultation: clear to auscultation bilaterally Cardio: Rate: regular rate Rhythm: regular rhythm GI: Inspection: normal to inspection GI Palp: No No hepatosplenomegaly present Auscultation: normal bowel sounds Rectal Exam: deferred Skin: General skin exam: normal color Psych: Appearance: grossly normal Mental Status: mental status grossly normal Assessment and Plan Assessment and plan (1) History of colonic polyps: Code(s): Z86.0100 - Personal history of colon polyps, unspecified Status: Acute Assessment and Plan: The patient is deemed a good candidate for the procedure. Consent signed. Will proceed.
[2025-02-28 10:34] VITALS: BP 132/76; PULSE 69; RESP 14; O2SAT 98
--- NOTE | 2025-02-28 10:34 | S_PTH ---
PATIENT: Cornelio Carmona LOC: [facility] U#:[id number] AGE/SX: 64/M ROOM: RE02/28/[address]: Bladimir Wilson MD : 1960 BED: DIS: 02/28/2025 SPEC #: [id number] RECD: 02/28/25 13:13 STATUS: SUSANNAH REQ #: [id number] JORDAN: 02/28/25 10:[address]: Bladimir Wilson DEPT: [facility] Surgical RECD BY: Skylar Armstrong ENTERED: 02/28/25 13:13 SP TYPE: Surgical OTHR DR: Alessandra Ruelas APRN Tissues: A - Colon Polypectomy Procedures: Hematoxylin and Eosin Stain Gross and Microscopic Level 4
[2025-02-28 10:44] VITALS: BP 115/66; PULSE 71; RESP 21; O2SAT 100
[2025-02-28 10:54] VITALS: BP 131/74; PULSE 67; RESP 17; O2SAT 100
== END 2025-02-28 11:18 | disposition home or self-care (01) ==
PROVIDERS: PCP Nurse Practitioner Adult Health; Referring Provider Internal Medicine Gastroenterology; Visit Provider Internal Medicine Gastroenterology
PROC: 0DJD8ZZ Inspection of Lower Intestinal Tract, Via Natural or Artificial Opening Endoscopic (ICD-10-PCS; CPT 45378; principal; 2025-02-28 10:30)
DX: Z12.11 Encounter for screening for malignant neoplasm of colon (principal); D12.2 Benign neoplasm of ascending colon; K64.8 Other hemorrhoids; K57.30 Diverticulosis of large intestine without perforation or abscess without bleeding; I10 Essential (primary) hypertension; E78.5 Hyperlipidemia, unspecified; F41.9 Anxiety disorder, unspecified; M21.70 Unequal limb length (acquired), unspecified site; M48.062 Spinal stenosis, lumbar region with neurogenic claudication; M43.06 Spondylolysis, lumbar region; M81.0 Age-related osteoporosis without current pathological fracture; G89.29 Other chronic pain; M54.9 Dorsalgia, unspecified; M19.90 Unspecified osteoarthritis, unspecified site; F12.90 Cannabis use, unspecified, uncomplicated; Z79.891 Long term (current) use of opiate analgesic; Z98.890 Other specified postprocedural states; Z87.891 Personal history of nicotine dependence; Z82.49 Family history of ischemic heart disease and other diseases of the circulatory system
CPT/HCPCS: 45385; 88305; J2704; J7120

== ENCOUNTER 2025-03-08 09:56 | Outpatient (CLI) | payer MEDICARE, SELFPAY ==
--- OUTSIDE RECORDS SUMMARY | 2025-03-08 11:12 | XMS_ITS | Clinical Summary ---
Author Organization [facility] Address [address] [place] [address] Phone Care Team Providers Care Lighthouse Keeper Name Role Phone Randy Singh Primary Care Provider [phone] Medications escitalopram (LEXAPRO) 20 MG Tablet Take [...] Comments Blood Pressure 125/79 04/28/2021 10:35 AM LICENSED MASS REAL ESTATE APPRAISER Pulse 61 04/28/2021 10:35 AM LICENSED MASS REAL ESTATE APPRAISER Temperature 36 C (96.8 F) 04/28/2021 10:35 AM LICENSED MASS REAL ESTATE APPRAISER Respiratory Rate 12 04/28/2021 10:35 AM LICENSED MASS REAL ESTATE APPRAISER Oxygen Saturation 100% 04/28/2021 10:35 AM LICENSED MASS REAL ESTATE APPRAISER Inhaled Oxygen Concentration - - Weight 90.3 kg (199 lb) 04/03/2021 9:00 AM LICENSED MASS REAL ESTATE APPRAISER Height 170.2 cm (5' 7) 04/03/2021 9:00 AM LICENSED MASS REAL ESTATE APPRAISER Body Mass Index 31.17 04/03/2021 9:00 AM LICENSED MASS REAL ESTATE APPRAISER Plan of Treatment Health Maintenance Due Date [...] patient's age to complete this topic Insurance [facility] Care Teams Lighthouse Keeper Relationship Specialty Start Date End Date Randy Singh PAC [address] [place] [address] PCP - General Physician Retail Store Manager 11/05/16
--- OUTSIDE RECORDS SUMMARY | 2025-03-08 11:12 | XMS_ITS | Clinical Summary ---
Author Organization [facility] Address [address] [place] [address] Care Team Providers Care Participant Administrator Name Role Phone Alessandra Ruelas NP Primary Care Provider [phone] Allergies No known active allergies Medications folic [...] Team Description 02/15/2025 8:30 AM CDT Therapy [facility] [place] [address] Karen Earl, PT Chronic midline low back pain without sciatica (Primary Dx); Pain in joint involving right pelvic region and thigh; Atrophy of calf muscles on right; Unequal leg length (acquired) 02/15/2025 Plan of Care Documentation [facility] Physical [place] [id number] from Last 3 Months Surgical History Surgery [...] on file 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 Testing performed by: [facility], [address] [place] [address]., [id number] Blood specimen (specimen) 10/09/2019 8:29 AM CDT 10/09/2019 1:47 PM CDT Xiomara Arizmendi MD LAB MICROBIOLOGY - GENERAL ORDER NELSON Final Result JULIA GUTHRIE ([place]) 1 [facility] [place] [address] * Hepatitis B core antibody, total (10/09/2019 8:29 AM CDT) Hep B core IgG/IgM Nonreactive Nonreactive JULIA GUTHRIE (FREDERICK) Comment:Testing performed by : [facility], [address] [place] [address], [id number] Blood specimen (specimen) 10/09/2019 8:29 AM CDT 10/09/2019 2:47 PM CDT Xiomara Arizmendi MD LAB MICROBIOLOGY - GENERAL ORDER NELSON Edited Result - Final JULIA GUTHRIE ([place]) 1 [facility] [place] [address] from Last 3 Months or Most Recently Relevant to Health Maintenance Insurance [facility] HMO/PPO Address: [address] [address] [place] [address] [facility] MEDICARE Address: [address] [address] [place] [address] [facility] MEDICARE ADVANTAGE [facility] MEDIC[facility] Address: [address] [address] [place] [address] Advance Directives For more information, please contact: [phone] * Full Code (Latest Code Status on File) Date Activated Date Inactivated Comments 10/08/2019 11:16 PM 10/10/2019 7:23 PM Healthcare Agents on File Name Relationship Healthcare Agent Relationshi p Communication Karis Short Sister First Alternate Health Care Agent Care Teams Participant Administrator Relationship Specialty Start Date End Date Alessandra Ruelas NP [address] [place] [address] PCP - General Nurse Practitioner 11/29/24
[2025-03-08 19:25] LABS: Alanine Aminotransferase 21 U/L (6-50); Albumin Level 4.4 g/dL (3.5-5.1); Alkaline Phosphatase 84 U/L (38-126); Anion Gap 7 mmol/L (4-12); Aspartate Amino Transferase 77 U/L (17-59); Bilirubin,Total 0.3 mg/dL (0.2-1.3); Blood Urea Nitrogen 14 mg/dL (9-20); Calcium 9.6 mg/dL (8.4-10.2); Carbon Dioxide 29 mmol/L (22-30); Chloride 102 mmol/L (98-107); Cholesterol 183 mg/dL (0-200); Estimated Glomerular Filt Rate > 60; Glucose 110 mg/dL (65-110); HDL Direct 33 mg/dL; Potassium 4.8 mmol/L (3.4-5.0); Sodium 138 mmol/L (137-145); Total Protein 7.8 g/dL (6.3-8.2); Triglycerides 162 mg/dL (<150)
[2025-03-08 19:36] LABS: Hematocrit 40.4 % (42.0-52.0); Hemoglobin 12.7 g/dL (14.0-18.0); Immature Granulocyte Percent A 0.3 % (0-0.5); Lymphocytes Absolute Auto 2.72 K/mm3 (0.9-3.2); Mean Corpuscular HGB Conc 31.4 g/dl (32-36); Mean Corpuscular Hemoglobin 29.5 pg (26-34); Mean Corpuscular Volume 93.7 fl (80-100); Nucleated Red Blood Cells Absolute Auto 0.000 K/mm3 (0.0-0.012); Nucleated Red Blood Cells Perc 0.0 % (0.0-0.2); Platelet Count Result 281 k/mm3 (150-375); Red Blood Count 4.31 M/mm3 (4.6-6.20); White Blood Count 7.1 K/mm3 (4.5-10.0)
[2025-03-08 20:05] LABS: Prostate Specific Antigen 11.8 ng/mL (< OR = 4.0); Thyroid Stimulating Hormone 0.410 uIU/mL (0.465-4.680)
== END 2025-03-08 09:57 | disposition home or self-care (01) ==
PROVIDERS: PCP Nurse Practitioner Adult Health; Visit Provider Nurse Practitioner Adult Health
DX: E78.5 Hyperlipidemia, unspecified (principal); R61 Generalized hyperhidrosis; I10 Essential (primary) hypertension; Z12.5 Encounter for screening for malignant neoplasm of prostate
CPT/HCPCS: 36415; 80053; 80061; 84153; 84443; 85025; G0103

== ENCOUNTER 2025-03-13 09:23 | Outpatient (CLI) | payer MEDICARE, SELFPAY ==
--- OUTSIDE RECORDS SUMMARY | 2025-03-13 10:40 | XMS_ITS | Clinical Summary ---
Author Organization [facility] Address [address] [place] [address] Phone Care Team Providers Care Medical Office Technologist Name Role Phone Randy Singh Primary Care Provider Medications escitalopram (LEXAPRO) 20 MG Tablet Take [...] Comments Blood Pressure 125/79 04/28/2021 10:35 AM HARDWARE MANAGER Pulse 61 04/28/2021 10:35 AM HARDWARE MANAGER Temperature 36 C (96.8 F) 04/28/2021 10:35 AM HARDWARE MANAGER Respiratory Rate 12 04/28/2021 10:35 AM HARDWARE MANAGER Oxygen Saturation 100% 04/28/2021 10:35 AM HARDWARE MANAGER Inhaled Oxygen Concentration - - Weight 90.3 kg (199 lb) 04/03/2021 9:00 AM HARDWARE MANAGER Height 170.2 cm (5' 7) 04/03/2021 9:00 AM HARDWARE MANAGER Body Mass Index 31.17 04/03/2021 9:00 AM HARDWARE MANAGER Plan of Treatment Health Maintenance Due Date [...] patient's age to complete this topic Insurance [facility] Care Teams Medical Office Technologist Relationship Specialty Start Date End Date Randy Singh PAC [address] [place] [address] PCP - General Physician Powder Carrier 11/05/16
--- OUTSIDE RECORDS SUMMARY | 2025-03-13 10:40 | XMS_ITS | Clinical Summary ---
Author Organization [facility] Address [address] [place] [address] Care Team Providers Care Layer Out Name Role Phone Alessandra Ruelas NP Primary Care Provider [phone] Allergies No known active allergies Medications folic [...] Team Description 02/15/2025 8:30 AM CDT Therapy [facility] [place] [address] Karen Earl, PT Chronic midline low back pain without sciatica (Primary Dx); Pain in joint involving right pelvic region and thigh; Atrophy of calf muscles on right; Unequal leg length (acquired) 02/15/2025 Plan of Care Documentation [facility] Physical [place] [id number] from Last 3 Months Surgical History Surgery [...] on file 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 Testing performed by: [facility], [address] [place] [address]., [id number] Blood specimen (specimen) 10/09/2019 8:29 AM CDT 10/09/2019 1:47 PM CDT Xiomara Arizmendi MD LAB MICROBIOLOGY - GENERAL ORDER NELSON Final Result JULIA GUTHRIE ([place]) 1 [facility] [place] [address] * Hepatitis B core antibody, total (10/09/2019 8:29 AM CDT) Hep B core IgG/IgM Nonreactive Nonreactive JULIA GUTHRIE (FREDERICK) Comment:Testing performed by : [facility], [address] [place] [address], [id number] Blood specimen (specimen) 10/09/2019 8:29 AM CDT 10/09/2019 2:47 PM CDT Xiomara Arizmendi MD LAB MICROBIOLOGY - GENERAL ORDER NELSON Edited Result - Final JULIA GUTHRIE ([place]) 1 [facility] [place] [address] from Last 3 Months or Most Recently Relevant to Health Maintenance Insurance [facility] MEDICARE ADVANTAGE Advance Directives For more information, please contact: [phone] * Full Code (Latest Code Status on File) Date Activated Date Inactivated Comments 10/08/2019 11:16 PM 10/10/2019 7:23 PM Healthcare Agents on File Name Relationship Healthcare Agent Relationshi p Communication Karis Short Sister First Alternate Health Care Agent Care Teams Layer Out Relationship Specialty Start Date End Date Alessandra Ruelas NP [address] [place] [address] PCP - General Nurse Practitioner 11/29/24
[2025-03-13 19:42] LABS: Free T4 Free Thyroxine 1.41 ng/dL (0.78-2.19)
== END 2025-03-13 09:24 | disposition home or self-care (01) ==
LOC: ANHBWCLAB 09:24
PROVIDERS: PCP Nurse Practitioner Adult Health; Visit Provider Nurse Practitioner Adult Health
DX: R63.4 Abnormal weight loss (principal); R79.89 Other specified abnormal findings of blood chemistry
CPT/HCPCS: 36415; 84439